=== PATIENT | female | born 1980 | race Caucasian/White ===

== ENCOUNTER → 2019-12-17 14:04 | Outpatient (CLI) | payer OTHER, SELFPAY | PROVIDERS: PCP Family Medicine; Referring Provider Family Medicine; Visit Provider Family Medicine | DX: T22.232A Burn of second degree of left upper arm, initial encounter (principal) | CPT/HCPCS: 16020; 99203; 99213 ==

== ENCOUNTER → 2019-12-24 12:20 | Outpatient (CLI) | payer OTHER, SELFPAY | PROVIDERS: PCP Family Medicine; Referring Provider Family Medicine; Visit Provider Family Medicine | DX: Z48.01 Encounter for change or removal of surgical wound dressing (principal) | CPT/HCPCS: 99212 ==

== ENCOUNTER 2020-01-18 14:36 | Emergency (ER) | payer OTHER, SELFPAY ==
[2020-01-18 14:44] VITALS: BP 143/66; PULSE 90; RESP 16; TEMP 36.6; O2SAT 99; BMI 30.9
[2020-01-18 15:26] LABS: Add Manual Diff / Slide Review NO; Basophils Absolute Auto 0 /uL (0-100); Basophils Percent Auto 0.2 % (0-2); Eosinophils Absolute Auto 100 /uL (0-450); Eosinophils Percent Auto 0.7 % (2-4); Hematocrit 37.6 % (36-46); Lymphocytes Absolute Auto 2200 /uL (1100-4500); Lymphocytes Percent Auto 20.5 % (25-40); Mean Corpuscular HGB Conc 34.5 % (30-36); Mean Corpuscular Hemoglobin 29.6 PG (26-34); Mean Corpuscular Volume 85.6 fL (80-100); Monocytes Absolute Auto 800 /uL (0-900); Monocytes Percent Auto 7.4 % (3-14); Neutrophils Absolute Auto 7600 /uL (1500-7000); Neutrophils Percent Auto 71.2 % (50-75); Platelet Count 340 X10^3/uL (150-400); Red Blood Cell Count 4.39 X10^6/uL (4.0-5.2); Red Cell Distribution Width 13.4 % (11.6-14.8); White Blood Cell Count 10.7 X10^3/uL (4.5-11.0)
--- NOTE | 2020-01-18 15:35 | DI.US.S_ITS ---
PROCEDURE: US PELVIC COMPLETE INDICATIONS: LLQ SEVERE PAIN AND NAUSEA TECHNIQUE: Real-time scanning was performed of the pelvic organs, with image documentation. Additional endovaginal scanning was necessary due to incomplete visualization of the adnexal and endometrial structures by transabdominal scanning. COMPARISON: None. FINDINGS: Transabdominal scanning: Limited scanning through the kidneys shows no hydronephrosis. No pathologic free abdominal or pelvic fluid. Endovaginal scanning: Uterus: Uterus is normal in size at 7.8 x 3.3 by 3.5 cm. The endometrium measures 5.8 mm in combined thickness. Small amount of clot noted in the endometrial cavity. Ovaries: Right ovary measures 2.8 x 1.7 x 1.7 centimeters. Left ovary measures 2.3 x 1.2 x 1.7 centimeters. Small functional follicles noted in the ovaries bilaterally. Color Doppler evaluation demonstrates normal vascular flow in the ovaries bilaterally. IMPRESSION: 1. Small amount of clot within the endometrial cavity. Uterus is otherwise sonographically normal. 2. Ovary sonographically normal with no evidence of ovarian torsion. Please note ultrasound cannot exclude intermittent ovarian torsion. Dictated by: Viki Witt MD, PhD on 01/18/2020 at 16:42 Approved by: Viki Witt MD, PhD on 01/18/2020 at 16:45
[2020-01-18 15:38] LABS: INR 1.1 (0.9-1.3); Prothrombin Time 12.3 SECONDS (10.1-12.7)
[2020-01-18 15:40] LABS: PTT Partial Thromboplastin Tim 34 SECONDS (26.4-36.2)
[2020-01-18 15:44] LABS: Alanine Aminotransferase 33 IU/L (<35); Albumin 4.4 g/dL (3.5-5.0); Albumin Globulin Ratio 1.1 (1.0-2.8); Alkaline Phosphatase 84 U/L (38-126); Aspartate Aminotransferase 27 IU/L (14-36); BUN Creatinine Ratio 12.9 (6-22); Bilirubin Total 0.4 mg/dL (0.2-1.3); Blood Urea Nitrogen 13 mg/dL (7-17); Calcium 9.3 mg/dL (8.4-10.2); Carbon Dioxide 27 mmol/L (22-32); Chloride 104 mmol/L (98-107); Estimated Glomerular Filt Rate > 60.0 mL/min (>60); Glucose 100 mg/dL (70-100); HEMOLYSIS < 15 (0-50); Lipase 67 U/L (23-300); Potassium 4.4 mmol/L (3.4-5.1); Sodium 140 mmol/L (137-145); Total Protein 8.4 g/dL (6.3-8.2)
[2020-01-18] MEDS: ONDANSETRON 4 MG/2 ML INJ IV (15:45)
[2020-01-18] MEDS: KETOROLAC 60 MG/2 ML VIAL 15 MG IV (15:45)
[2020-01-18] MEDS: SODIUM CHLORIDE 0.9% 1,000 ML 1000 ML IV (15:45)
--- NOTE | 2020-01-18 15:51 | ED.ABDPAIN ---
HPI - Abdominal Pain <SHITAL Bates - Last Filed: 01/18/20 22:24> General Chief Complaint: Abdominal Pain Stated Complaint: lower left abomdinal pain Time Seen by Provider: 01/18/20 15:08 Source: patient Mode of arrival: Ambulatory Limitations: no limitations History of Present Illness HPI narrative: This is a 39 year female, nonsmoker, who presents to ED with significant other with chief complain of left lower quadrant pain. Patient reports intermittent similar pain since July 2019 and this time recurring since this morning. Patient reports pain is sharp and rates as 10/10, reports pain worsens with movements, with nausea but no vomiting. Patient denies fever, chills, urinary symptoms such as urgency, dysuria, or hematuria. Patient denies history of ovarian cysts, unusual vaginal bleeding or discharge. Patient reports she had removed IUD Mirena about 3 weeks ago thought this was the cause of the left low quadrant pain. She is currently having vaginal spotting. Last bowel movement was this morning which was normal for patient. [facility] medical record was reviewed on 12/28/[address] test at that time reveals left-sided 4 mm uretal stone which has not been changed in location since July 2019. Multiple nonobstructing small left renal stones. And probable malpositioned of the IUD extending into the myometrium Related Data Home Medications Medication Instructions Recorded Confirmed bupropion HCl 300 mg PO DAILY 01/23/20 01/23/20 Previous Rx's Medication Instructions Recorded ondansetron 4 mg PO BID-TID PRN #7 tab 01/18/20 oxycodone 5 mg PO Q4H PRN #14 tab 01/23/20 Allergies Allergy/AdvReac Type Severity Reaction Status Date / Time hydromorphone [From Dilaudid] AdvReac Vomiting Verified 01/23/20 07:11 Review of Systems <SHITAL Bates - Last Filed: 01/18/20 22:24> Review of Systems Narrative: General: Denies fever, chills, fatigue, malaise, sweats. HEENT: Denies sinus pain, ear pain, sore throat, difficulty swallowing, dizziness. Respiratory: Denies dyspnea, cough, wheezing, hemoptysis, sputum. Cardiovascular: Denies chest pain, palpitations, orthopnea, edema. Gastrointestinal: See HPI : Denies dysuria, frequency, incontinence, hematuria, urinary retention. Musculoskeletal: Denies weakness, joint pain or bony pain. Skin: Denies rash, skin lesions, or other. Neurologic: Denies weakness, headache, numbness, change in speech, confusion, seizures, incoordination. Psychiatric: No concerning psychosocial issues. 12-point review of systems is negative except for those stated above. Patient History <SHITAL Bates - Last Filed: 01/18/20 22:24> Medical History (Updated 01/23/20 @ 14:18 by Rosalio Valverde MD) History of nephrolithiasis (Acute) Left renal stone (Acute) Left renal stone (Acute) Left ureteral calculus (Acute) Left ureteral stone (Acute) Renal colic on left side (Acute) Surgical History H/O Spinal surgery (Acute) History of appendectomy (Acute) History of (Acute) Social History household members: family Smoking Status: Never smoker Smoking Status: Never smoker alcohol intake frequency: a few times a month Substance Use Type: does not use Exam <SHITAL Bates - Last Filed: 01/18/20 22:24> Narrative Exam Narrative: GEN: Alert, oriented x 3, well nourished, and in acute moderate distress from pain. Head: Normal cephalic, atraumatic. No scalp or temporal tenderness, palpable mass or rash. EYES: Pupils are equal, round, and reactive to light and accommodation. Extraocular muscles are intact bilaterally. There is no subconjunctival hemorrhage, exudate and sclera non-icteric. ENT: Hearing grossly intact. Nose without bleeding, purulent discharge or deviation. Mucous membrane moist, no mucosal lesion. Throat without erythema, tonsillar hypertrophy or exudate. Uvula in midline, airway patent. Neck: Trachea in midline. No JVD, non-tender without lymphadenopathy. No masses or thyroid megaly. Supple, non-tender and no meningeal signs. CARDIAC: Normal regular rate and rhythm without murmurs, gallops, or rubs. No chest wall tenderness. No peripheral edema, cyanosis or pallor. Capillary refill is less than 2 seconds. RESPIRATORY: Lungs are clear to auscultate bilaterally. No cough, wheezes, rales, or rhonchi. No stridor, respiratory distress, increase work of breathing, or accessary muscle used. ABD: Abdomen soft, non-distended, left lower quadrant pain to palpate. No guarding or rebound tenderness to palpate. Bowel sounds are normal in all 4 quadrants. There is no palpable masses or organomegaly. EXT: Full painless ROM of all extremities with no loss of sensation, strength, effusion or edema. SKIN: Warm, dry, normal color for patient. No erythema, lesions or rash over visible areas. BACK: Nontender without deformity or crepitance. No flank tenderness. NEUROLOGICAL: Alert and oriented to place, time and person. Sensation and motor function intact bilaterally. No facial droops, dysphasia. PSYCHIATRIC: Good judgement and reason, without hallucinations, abnormal affect or abnormal behaviors during the examination. Patient is not suicidal. Initial Vital Signs Initial Vital Signs: Vital Signs Temperature 97.9 F 01/18/20 14:44 Pulse Rate 90 01/18/20 14:44 Respiratory Rate 16 01/18/20 14:44 Blood Pressure 143/66 H 01/18/20 14:44 Pulse Oximetry 99 01/18/20 14:44 General: No CVA tenderness External Female Exam: normal external appearance Speculum Exam - Vagina: normal appearance of the vagina, no lesions, no swelling, nontender and other (Watery light pink vaginal discharge appreciated) Speculum Exam - Cervix: normal appearance of the cervix, no lesions, no masses and nontender Bimanual Exam- Vagina & Uterus: normal bimanual exam, uterine size normal, normal palpation and No tender Bimanual Exam- Adnexa, other: no masses and no tenderness <Goldie Clark DO - Last Filed: 01/24/20 07:33> Initial Vital Signs Initial Vital Signs: Vital Signs Temperature 97.9 F 01/18/20 14:44 Pulse Rate 90 01/18/20 14:44 Respiratory Rate 16 01/18/20 14:44 Blood Pressure 143/66 H 01/18/20 14:44 Pulse Oximetry 99 01/18/20 14:44 Scores <SHITAL Bates - Last Filed: 09/21/20 22:24> GCS [place] coma scale eye opening: Spontaneous [place] coma scale verbal response: Orientated [place] coma scale motor response: Obey commands [place] coma scale total score: 15 Course <SHITAL Bates - Last Filed: 01/18/20 22:24> Orders Ordered: Discontinued Medications Bacitracin (Bacitracin) 1 applic TOP NOW ONE Stop: 01/18/20 16:00 Last Admin: 01/18/20 17:16 Dose: Not Given Documented by: KSCHERE Sodium Chloride (Normal Saline 0.9%) 1,000 mls @ 1,000 mls/hr IV BOLUS ONE Stop: 01/18/20 16:34 Last Infusion: 01/18/20 18:03 Dose: 0 mls/hr Documented by: Admin: 01/18/20 15:45 Dose: 1,000 mls/hr Documented by: CHARLIE Ketorolac Tromethamine (Toradol) 15 mg IV NOW ONE Stop: 01/18/20 15:36 Last Admin: 01/18/20 15:45 Dose: 15 mg Documented by: CHARLIE Ondansetron HCl (Zofran) 4 mg IV NOW ONE Stop: 01/18/20 15:36 Last Admin: 01/18/20 15:45 Dose: 4 mg Documented by: CHARLIE Vital Signs Vital signs: Vital Signs - 8 hr 01/18/20 14:44 01/18/20 18:26 Temperature 97.9 F Pulse Rate 90 86 Respiratory Rate 16 18 Blood Pressure 143/66 H 138/71 Pulse Oximetry 99 99 <Goldie Clark DO - Last Filed: 01/24/20 07:33> Orders Ordered: Discontinued Medications Bacitracin (Bacitracin) 1 applic TOP NOW ONE Stop: 01/18/20 16:00 Last Admin: 01/18/20 17:16 Dose: Not Given Documented by: KSCHERE Sodium Chloride (Normal Saline 0.9%) 1,000 mls @ 1,000 mls/hr IV BOLUS ONE Stop: 01/18/20 16:34 Last Infusion: 01/18/20 18:03 Dose: 0 mls/hr Documented by: Admin: 01/18/20 15:45 Dose: 1,000 mls/hr Documented by: CHARLIE Ketorolac Tromethamine (Toradol) 15 mg IV NOW ONE Stop: 01/18/20 15:36 Last Admin: 01/18/20 15:45 Dose: 15 mg Documented by: CHARLIE Ondansetron HCl (Zofran) 4 mg IV NOW ONE Stop: 01/18/20 15:36 Last Admin: 01/18/20 15:45 Dose: 4 mg Documented by: CHARLIE Vital Signs Vital signs: Vital Signs - 8 hr 01/18/20 14:44 01/18/20 18:26 Temperature 97.9 F Pulse Rate 90 86 Respiratory Rate 16 18 Blood Pressure 143/66 H 138/71 Pulse Oximetry 99 99 MDM - Abdominal Pain <Jacobo SHITAL Izquierdo - Last Filed: 01/18/20 22:24> Differential Diagnosis Differential diagnosis: Likely diverticulitis, endometriosis and other (Ovarian cyst, hemorrhagic ovarian cyst, ovarian torsion, PID, oval tubular abscess, urine perforation, constipation, kidney stone, bladder infection) Medical Records Attestation: I reviewed the patient's medical records. Lab Data Attestation: I reviewed the patient's lab results. Result diagrams: 01/18/20 15:19 01/18/20 15:19 Labs: Lab Results 01/18/20 01/18/20 01/18/20 Range/Units 15:19 15:19 15:19 WBC 10.7 (4.5-11.0) X10^3/uL RBC 4.39 (4.0-5.2) X10^6/uL Hgb 13.0 (12.0-16.0) g/dL Hct 37.6 (36-46) % MCV 85.6 (80-100) fL MCH 29.6 (26-34) PG MCHC 34.5 (30-36) % RDW 13.4 (11.6-14.8) % Plt Count 340 (150-400) X10^3/uL Neut % (Auto) 71.2 (50-75) % Lymph % (Auto) 20.5 L (25-40) % [place] % (Auto) 7.4 (3-14) % Eos % (Auto) 0.7 L (2-4) % Baso % (Auto) 0.2 (0-2) % Neut # (Auto) 7600 H (9837-8863) /uL Lymph # (Auto) 2200 (7892-0084) /uL [place] # (Auto) 800 (0-900) /uL Eos # (Auto) 100 (0-450) /uL Baso # (Auto) 0 (0-100) /uL PT 12.3 (10.1-12.7) SECONDS INR 1.1 (0.9-1.3) APTT 34 (26.4-36.2) SECONDS Sodium 140 (137-145) mmol/L Potassium 4.4 (3.4-5.1) mmol/L Chloride 104 (98-107) mmol/L Carbon Dioxide 27 (22-32) mmol/L BUN 13 (7-17) mg/dL Creatinine 1.01 (0.52-1.04) mg/dL Estimated GFR > 60.0 (>60) mL/min BUN/Creatinine Ratio 12.9 (6-22) Glucose 100 (70-100) mg/dL Lactate (0.7-2.1) mmol/L Calcium 9.3 (8.4-10.2) mg/dL Total Bilirubin 0.4 (0.2-1.3) mg/dL AST 27 (14-36) IU/L ALT 33 (<35) IU/L Alkaline Phosphatase 84 (38-126) U/L Total Protein 8.4 H (6.3-8.2) g/dL Albumin 4.4 (3.5-5.0) g/dL Globulin 4.0 (1.7-4.1) g/dL Albumin/Globulin Ratio 1.1 (1.0-2.8) Lipase 67 (23-300) U/L Urine RBC (0-5/HPF) Urine WBC (0-5/HPF) Ur Squamous Epith Cells (0-5/HPF) Urine Bacteria (None) Ur Culture Indicated? C.trachomatis Ampl DNA (Negative) M. genitalium (PCR) (Negative) N.gonorrhoeae Ampl DNA (Negative) 01/18/20 01/18/20 01/18/20 Range/Units 15:19 16:40 18:02 WBC (4.5-11.0) X10^3/uL RBC (4.0-5.2) X10^6/uL Hgb (12.0-16.0) g/dL Hct (36-46) % MCV (80-100) fL MCH (26-34) PG MCHC (30-36) % RDW (11.6-14.8) % Plt Count (150-400) X10^3/uL Neut % (Auto) (50-75) % Lymph % (Auto) (25-40) % [place] % (Auto) (3-14) % Eos % (Auto) (2-4) % Baso % (Auto) (0-2) % Neut # (Auto) (4622-4043) /uL Lymph # (Auto) (7961-1932) /uL [place] # (Auto) (0-900) /uL Eos # (Auto) (0-450) /uL Baso # (Auto) (0-100) /uL PT (10.1-12.7) SECONDS INR (0.9-1.3) APTT (26.4-36.2) SECONDS Sodium (137-145) mmol/L Potassium (3.4-5.1) mmol/L Chloride (98-107) mmol/L Carbon Dioxide (22-32) mmol/L BUN (7-17) mg/dL Creatinine (0.52-1.04) mg/dL Estimated GFR (>60) mL/min BUN/Creatinine Ratio (6-22) Glucose (70-100) mg/dL Lactate 1.0 (0.7-2.1) mmol/L Calcium (8.4-10.2) mg/dL Total Bilirubin (0.2-1.3) mg/dL AST (14-36) IU/L ALT (<35) IU/L Alkaline Phosphatase (38-126) U/L Total Protein (6.3-8.2) g/dL Albumin (3.5-5.0) g/dL Globulin (1.7-4.1) g/dL Albumin/Globulin Ratio (1.0-2.8) Lipase (23-300) U/L Urine RBC 5-10/hpf H (0-5/HPF) Urine WBC 10-30/hpf H (0-5/HPF) Ur Squamous Epith Cells 0-1 /hpf (0-5/HPF) Urine Bacteria Occasional (0-1) (None) Ur Culture Indicated? Specimen cultured C.trachomatis Ampl DNA Negative (Negative) M. 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 Additional endovaginal scanning was necessary due to incomplete visualization of the adnexal and endometrial structures by transabdominal scanning. COMPARISON: None. FINDINGS: Transabdominal scanning: Limited scanning through the kidneys shows no hydronephrosis. No pathologic free abdominal or pelvic fluid. Endovaginal scanning: Uterus: Uterus is normal in size at 7.8 x 3.3 by 3.5 cm. The endometrium measures 5.8 mm in combined thickness. Small amount of clot noted in the endometrial cavity. Ovaries: Right ovary measures 2.8 x 1.7 x 1.7 centimeters. Left ovary measures 2.3 x 1.2 x 1.7 centimeters. Small functional follicles noted in the ovaries bilaterally. Color Doppler evaluation demonstrates normal vascular flow in the ovaries bilaterally. IMPRESSION: 1. Small amount of clot within the endometrial cavity. Uterus is otherwise sonographically normal. 2. Ovary sonographically normal with no evidence of ovarian torsion. Please note ultrasound cannot exclude intermittent ovarian torsion. Dictated by: Viki Witt MD, PhD on 01/18/2020 at 16:42 Approved by: Viki Witt MD, PhD on 01/18/2020 at 16:45 [facility] Narrative Medical decision making narrative: This is a 39-year-old female who presents to ED with severe left lower quadrant pain that started this morning. Patient has been having similar symptoms since July 2019. She had removed IUD Mirena 3 weeks ago after she was seen at [facility] and was informed malposition of IUD. Patient had associated symptoms is nausea but denies constitutional symptoms, UTI symptoms, unusual vaginal discharge. She is currently having menstruation. No leukocytosis. Stable H&H. Normal coag test. Test with normal kidney function test. Normal lactate and procalcitonin indicating sepsis or severe infection. Urine test shows occult blood, negative nitrites, or leukoesterase. Urine test was negative. Microscopic urine test shows 10-30/ hpf of WBC and 5-10/hpf of RBC with occasional bacteria. Urine cultures pending. Pelvic US shows no hydronephrosis, no perforated uterus, normal size bilateral ovaries with small functional follicles. There is normal vascular floor in the ovaries bilaterally. Pelvic physical exam was unremarkable. GC/chlamydia culture, wet prep, general culture was obtained and pending for results. After patient was discharged to home, prep result came back with positive for moderate amount of cleucells. Patient's pain was well managed with IV Zofran, Toradol and IVF infusion. She appears to be drowsy after these treatments without any narcotic medication use. Patient was diagnosed with UTI and bacterial vagnosis. When patient's record from [facility] reviewed, patient has multiple nonobstructing left kidney stones and 4 mm uretal stone with mild hydronephrosis on 12/29/2019 which has not changed since July 2019 on location. The patient's pain may due to kidney stones there was seen in the previous CT test. Patient was advised to follow-up with urologist per [facility] but does not appears to be patient has done this yet. Patient was discharged to home with small dose of [place], Zofran and advised to take [id number] Tylenol and or Motrin for baseline pain management. She was called with wet prep result and Flagyl vaginal gel was called into [facility] in [place]. Patient was advised to follow-up with primary care physician and return precautions were discussed which patient verbalized the understanding and in agreement with the treatment plan. <Goldie Clark, - Last Filed: 01/24/20 07:33> Lab Data Labs: Lab Results 01/18/20 01/18/20 01/18/20 Range/Units 15:19 15:19 15:19 WBC 10.7 (4.5-11.0) X10^3/uL RBC 4.39 (4.0-5.2) X10^6/uL Hgb 13.0 (12.0-16.0) g/dL Hct 37.6 (36-46) % MCV 85.6 (80-100) fL MCH 29.6 (26-34) PG MCHC 34.5 (30-36) % RDW 13.4 (11.6-14.8) % Plt Count 340 (150-400) X10^3/uL Neut % (Auto) 71.2 (50-75) % Lymph % (Auto) 20.5 L (25-40) % [place] % (Auto) 7.4 (3-14) % Eos % (Auto) 0.7 L (2-4) % Baso % (Auto) 0.2 (0-2) % Neut # (Auto) 7600 H (6175-9711) /uL Lymph # (Auto) 2200 (2799-1317) /uL [place] # (Auto) 800 (0-900) /uL Eos # (Auto) 100 (0-450) /uL Baso # (Auto) 0 (0-100) /uL PT 12.3 (10.1-12.7) SECONDS INR 1.1 (0.9-1.3) APTT 34 (26.4-36.2) SECONDS Sodium 140 (137-145) mmol/L Potassium 4.4 (3.4-5.1) mmol/L Chloride 104 (98-107) mmol/L Carbon Dioxide 27 (22-32) mmol/L BUN 13 (7-17) mg/dL Creatinine 1.01 (0.52-1.04) mg/dL Estimated GFR > 60.0 (>60) mL/min BUN/Creatinine Ratio 12.9 (6-22) Glucose 100 (70-100) mg/dL Lactate (0.7-2.1) mmol/L Calcium 9.3 (8.4-10.2) mg/dL Total Bilirubin 0.4 (0.2-1.3) mg/dL AST 27 (14-36) IU/L ALT 33 (<35) IU/L Alkaline Phosphatase 84 (38-126) U/L Total Protein 8.4 H (6.3-8.2) g/dL Albumin 4.4 (3.5-5.0) g/dL Globulin 4.0 (1.7-4.1) g/dL Albumin/Globulin Ratio 1.1 (1.0-2.8) Lipase 67 (23-300) U/L Urine RBC (0-5/HPF) Urine WBC (0-5/HPF) Ur Squamous Epith Cells (0-5/HPF) Urine Bacteria (None) Ur Culture Indicated? C.trachomatis Ampl DNA (Negative) M. genitalium (PCR) (Negative) N.gonorrhoeae Ampl DNA (Negative) 01/18/20 01/18/20 01/18/20 Range/Units 15:19 16:40 18:02 WBC (4.5-11.0) X10^3/uL RBC (4.0-5.2) X10^6/uL Hgb (12.0-16.0) g/dL Hct (36-46) % MCV (80-100) fL MCH (26-34) PG MCHC (30-36) % RDW (11.6-14.8) % Plt Count (150-400) X10^3/uL Neut % (Auto) (50-75) % Lymph % (Auto) (25-40) % [place] % (Auto) (3-14) % Eos % (Auto) (2-4) % Baso % (Auto) (0-2) % Neut # (Auto) (4407-1920) /uL Lymph # (Auto) (1735-7207) /uL [place] # (Auto) (0-900) /uL Eos # (Auto) (0-450) /uL Baso # (Auto) (0-100) /uL PT (10.1-12.7) SECONDS INR (0.9-1.3) APTT (26.4-36.2) SECONDS Sodium (137-145) mmol/L Potassium (3.4-5.1) mmol/L Chloride (98-107) mmol/L Carbon Dioxide (22-32) mmol/L BUN (7-17) mg/dL Creatinine (0.52-1.04) mg/dL Estimated GFR (>60) mL/min BUN/Creatinine Ratio (6-22) Glucose (70-100) mg/dL Lactate 1.0 (0.7-2.1) mmol/L Calcium (8.4-10.2) mg/dL Total Bilirubin (0.2-1.3) mg/dL AST (14-36) IU/L ALT (<35) IU/L Alkaline Phosphatase (38-126) U/L Total Protein (6.3-8.2) g/dL Albumin (3.5-5.0) g/dL Globulin (1.7-4.1) g/dL Albumin/Globulin Ratio (1.0-2.8) Lipase (23-300) U/L Urine RBC 5-10/hpf H (0-5/HPF) Urine WBC 10-30/hpf H (0-5/HPF) Ur Squamous Epith Cells 0-1 /hpf (0-5/HPF) Urine Bacteria Occasional (0-1) (None) Ur Culture Indicated? Specimen cultured C.trachomatis Ampl DNA Negative (Negative) M. genitalium (PCR) Negative (Negative) N.gonorrhoeae Ampl DNA Negative (Negative) Point of care testing: Point of Care Testing Test Results Negative Urine Dip Bedside Urine Glucose Negative Bedside Urine Bilirubin - Negative Bedside Urine Ketone - Negative Urine Specific [place] 1.020 Bedside Urine Occult Blood + Bedside Urine pH 6.0 Bedside Urine Protein - Negative Bedside Urine Urobilinogen - Negative Bedside Urine Nitrite - Negative Bedside Urine Leukocytes - Negative Esterase Discharge Plan Departure Patient Disposition: Home Clinical Impression: Left lower quadrant abdominal pain UTI (urinary tract infection) Qualifiers: Urinary tract infection type: site unspecified Hematuria presence: without hematuria Qualified Code(s): N39.0 - Urinary tract infection, site not specified Discharge Date/Time: 01/18/20 18:27 Instructions: DI for Urinary Tract Infection (UTI), DI for Abdominal Pain-Adult Activity Restrictions/Additional Instructions: You have been diagnosed with [left lower quadrant pain. Blood test and ultrasound tests are assuring. Urine test shows early UTI. Urine cultures pending. You will receive a phone call from us if require different antibiotic medication. You will receive a phone call from a if you require other medications with vaginal culture results.]. What to do: *Take your medications as directed. Keflex is antibiotic medication for UTI. Please take it twice a day for next 5 days. Zofran as needed for nausea. [place] is strong narcotic pain medication which can cause sedation and constipation so please take precautions. Please do not drive, drink alcohol or operate heavy equipments. Otherwise, you can take [id number] Tylenol and or Motrin as needed for discomfort. The medications have been transmitted to [facility] in [place]. *Follow up with your primary care provider in 2-3 days, call for an appointment. Let them know you were seen in the ED and that we asked you to be seen in follow up. *Return to ED if you have any new, worsening, or concerning symptoms, such as [worsening pain, fever, chest pain, breathing difficulty, unusual vaginal discharge, unable to tolerate fluids or any acute concerns]. Prescriptions: New ondansetron 4 mg tablet,disintegrating 4 mg PO BID-TID PRN (Reason: nausea and vomiting) Qty: 7 RF: 0 No Action bupropion HCl 300 mg tablet extended release 24 hr 300 mg PO DAILY RF: 0 oxycodone 5 mg tablet 5 mg PO Q4H PRN (Reason: pain) Qty: 14 RF: 0 Referrals: [facility] [Outside] Stand Alone Forms: Work Release Note <Goldie Clark, DO - Last Filed: 01/24/20 07:33> [facility] Attending Darenature Attestation: I was immediately available in the department for consultation. Documentation has been reviewed. I agree with assessment and plan.
[2020-01-18 17:13] LABS: Bacteria Urine Occasional (0-1); Culture Indicated Urine Specimen Cultured; RBC Urine 5-10/HPF (0-5/HPF); Squamous Epithelial Cell Urine 0-1 /HPF (0-5/HPF); WBC Urine 10-30/HPF (0-5/HPF)
[2020-01-18 18:26] VITALS: BP 138/71; PULSE 86; RESP 18; O2SAT 99
[2020-01-22 09:37] LABS: Chlamydia trachomatis Negative (Negative); Mycoplasma genitalium Negative (Negative); Neisseria gonorrhoeae Negative (Negative)
== END 2020-01-18 18:27 | disposition home or self-care (01) ==
PROVIDERS: Emergency Provider Nurse Practitioner Family
DX: R10.32 Left lower quadrant pain (principal); N39.0 Urinary tract infection, site not specified; R11.0 Nausea
CPT/HCPCS: 36415; 76856; 80053; 81003; 81015; 81025; 83605; 83690; 85025; 85610; 85730; 87070; 87077; 87086; 87147; 87205; 87210; 87491; 87591; 96361; 96374; 96375; 99284; J1885; J2405

== ENCOUNTER 2020-01-23 06:43 | Observation (INO) | payer OTHER, SELFPAY ==
[2020-01-23] VITALS (19 sets, daily range): BP systolic 111–138; BP diastolic 52–81; PULSE 85–119; RESP 11–34; TEMP 36.2–37.5; O2SAT 94–100; BMI 31.5; BMI 31.1
--- NOTE | 2020-01-23 | DI.RAD.S_ITS ---
PROCEDURE: XR KUB INDICATIONS: Obstructing left ureteral calculus TECHNIQUE: One view of the abdomen acquired. COMPARISON: [facility], CT, CT ABDOMEN PELVIS W CON, 01/23/2020, 8:16. FINDINGS: Surgical changes and devices: None. Bowel: Bowel gas pattern is normal. Soft tissues: There is poor plain film visualization of the patient's known left ureteral stone. There is retained contrast seen within the left kidney parenchyma, which is consistent with poor excretion and reduced kidney function. Normal appearing excreting contrast is seen within the right renal collecting system and within the urinary bladder. Bones: No suspicious bony lesions. IMPRESSION: There is poor visualization of the known left ureteral stone. Retained contrast within the left kidney parenchyma, which is consistent with reduced kidney function. Dictated by: Yadiel Bailey M.D. on 01/23/2020 at 13:58 Approved by: Yadiel Bailey M.D. on 01/23/2020 at 14:04
--- NOTE | 2020-01-23 | DI.RAD.S_ITS ---
PROCEDURE: XR ABDOMEN 1V INDICATIONS: STENT TECHNIQUE: One view of the abdomen acquired. COMPARISON: [facility], CT, CT ABDOMEN PELVIS W CON, 01/23/2020, 8:16. [facility], CR, XR KUB, 01/23/2020, 14:02. FINDINGS: Single intraoperative fluoroscopic view of the left abdomen demonstrates proximal coil of a left ureteral stent. IMPRESSION: 1. Intraoperative fluoroscopic view of the left abdomen demonstrates proximal coil of a left ureteral stent. Dictated by: Fredo Reyez M.D. on 01/23/2020 at 21:01 Approved by: Fredo Reyez M.D. on 01/23/2020 at 21:03
--- NOTE | 2020-01-23 07:06 | ED_ITS ---
HPI - Female Genitourinary General Chief complaint: Urogenital-Female Stated complaint: kidney stone won't pass Time Seen by Provider: 01/23/20 06:55 Source: patient and family Mode of arrival: Ambulatory Limitations: no limitations History of Present Illness HPI Narrative: 39-year-old female nonsmoker with history of kidney stone and recurrent episodes of pelvic pain presents with her friend in the chief complain t of ongoing left lower quadrant and left flank pain since at least Saturday. She had been seen and evaluated here earlier in the week and had an ultrasound which was unremarkable and was treated for her pain. In days previous to that she was seen at would be and told that she had an issue with her IUD which had since been removed. The pain persists despite removal. She has had nausea and vomiti ng. She denies fever or chills. She denies runny nose, sore throat or cough. She has had no chest pain or shortness of breath. She denies any dysuria, frequency or urgency. Her pain is worse with motion and improves with rest. MD Complaint: pelvic pain Onset (ago): day(s) Location: LLQ Female Urogenital Radiation: L Flank Severity: severe Quality: Aching, Cramping and Sharp Duration: constant Exacerbating factors: movement Patient : No Related Data Home Medications Medication Instructions Recorded Confirmed bupropion HCl 300 mg PO DAILY 01/23/20 01/23/20 Previous Rx's Medication Instructions Recorded hydrocodone-acetaminophen [[place]] 1 tab PO Q8H PRN #7 tab 01/18/20 ondansetron 4 mg PO BID-TID PRN #7 tab 01/18/20 Allergies Allergy/AdvReac Type Severity Reaction Status Date / Time hydromorphone [From Dilaudid] AdvReac Vomiting Verified 01/23/20 07:11 Review of Systems Constitutional Constitutional: Denies chills, Denies fatigue, Denies fever(s), Denies frequent falls, Denies lethargy and Denies weakness Eyes Eyes: Denies change in vision, Denies eye discharge, Denies irritation and Denies loss of vision ENT Ears, Nose, Mouth, and Throat: Denies change in voice, Denies dizziness, Denies neck pain, Denies sore throat and Denies throat swelling Cardiovascular Cardiovascular: Denies chest pain, Denies irregular heart rhythm, Denies lightheadedness, Denies palpitations, Denies dyspnea, Denies dyspnea on exertion and Denies orthopnea Respiratory Respiratory: Denies cough, Denies dyspnea, Denies dyspnea on exertion and Denies wheezing Gastrointestinal Gastrointestinal: Reports abdominal pain, Denies change in bowel habits, Denies diarrhea, Reports nausea and Reports vomiting Musculoskeletal Musculoskeletal: Denies neck pain and Denies numbness Integumentary/Breasts Skin/Breast: Denies pruritus, Denies erythema, Denies rash and Denies wounds Neurologic Neurologic: Denies behavioral changes, Denies confusion, Denies dizziness, Denies frequent falls, Denies loss of vision, Denies numbness and Denies weakness Psychiatric Psychiatric: Denies anxiety, Denies behavioral changes, Denies confusion, Denies depression, Denies homicidal ideation and Denies suicidal ideation Endocrine Endocrine: Denies fatigue, Denies flushing and Denies palpitations Hematologic/Lymphatic Hematologic/Lymphatic: Denies easy bruising Allergic/Immunologic Allergic/Immunologic: Denies urticaria, Denies throat swelling and Denies wheezing Patient History Medical History Left renal stone (Acute) Left ureteral stone (Acute) Surgical History H/O Spinal surgery (Acute) History of appendectomy (Acute) History of (Acute) alcohol intake frequency: a few times a month Substance Use Type: does not use Exam Narrative Exam Narrative: GENERAL: [39] year old patient appears stated age. Well- nourished, well-developed patient, in obvious distress, tearful, holding an emesis bag, rubbing her left side abdomen HEAD: Atraumatic. Normocephalic. EYES: Pupils equal round and reactive. Extraocular motions intact. No scleral icterus. No injection or drainage. ENT: Nose without bleeding, purulent drainage. Throat without erythema, tonsillar hypertrophy or exudate. Airway patent. NECK: Trachea midline. Non tender CARDIOVASCULAR: Regular rate and rhythm without murmurs, gallops, or rubs. RESPIRATORY: Clear to auscultation. Breath sounds equal bilaterally. No wheezes, rales, or rhonchi. GASTROINTESTINAL: Abdomen soft, left lower quadrant and flank mildly tender to palpate, nondistended. Bowel sounds in all 4 quadrants EXTREMITIES: No edema or joint tenderness. BACK: Nontender without deformity or crepitance. No flank tenderness. NEURO: AOx3. SKIN: No rash or erythema of visible areas Initial Vital Signs Initial Vital Signs: Vital Signs Pulse Rate 117 H 01/23/20 06:57 Blood Pressure 138/81 01/23/20 06:57 Pulse Oximetry 99 01/23/20 06:57 Course Orders Ordered: ED Orders 01/23/20 07:20 Basic Metabolic Panel Stat Complete Blood Count AUTO DIFF Stat 01/23/20 08:01 CT abdomen pelvis w con Stat 01/23/20 08:21 Urinalysis and Microscopic Stat 01/23/20 09:12 COVID19 -ED/INPAT/OR/L&D Stat 01/23/20 09:27 Urine Culture Stat Stored In Pharmacy 0 each PO PRN PRN PRN Reason: . Sodium Chloride (Normal Saline 0.9% Flush) 10 ml IV PRN PRN PRN Reason: Flush Last Admin: 01/23/20 11:36 Dose: 10 ml Documented by: NEVAEH Sodium Chloride (Normal Saline 0.9% Flush) 10 ml IV BID JOANNE Discontinued Medications Sodium Chloride (Normal Saline 0.9%) 1,000 mls @ 1,000 mls/hr IV BOLUS ONE Stop: 01/23/20 09:00 Last Infusion: 01/23/20 09:50 Dose: 0 mls/hr Documented by: Admin: 01/23/20 08:39 Dose: 1,000 mls/hr Documented by: RON Ceftriaxone Sodium/Dextrose (Rocephin) 1 gm in 50 mls @ 100 mls/hr IV NOW ONE Stop: 01/23/20 09:53 Last Admin: 01/23/20 11:31 Dose: 100 mls/hr Documented by: NEVAEH Ketorolac Tromethamine (Toradol) 15 mg IV NOW ONE Stop: 01/23/20 08:02 Last Admin: 01/23/20 08:38 Dose: 15 mg Documented by: RON Ondansetron HCl (Zofran) 4 mg IV NOW ONE Stop: 01/23/20 08:38 Last Admin: 01/23/20 08:45 Dose: 4 mg Documented by: RON Consultations Consultation #1: call to Dr. Valverde given repeat visit, ongoing pain, large proximal stone and elevated WBC. He requests ABX, COVID, NPO and will admit for likely stent Vital Signs Vital signs: Vital Signs - 8 hr 01/23/20 06:57 01/23/20 07:00 01/23/20 07:09 Temperature 98.4 F Pulse Rate 117 H 119 H 116 H Respiratory Rate 22 Blood Pressure 138/81 138/81 Pulse Oximetry 99 100 98 01/23/20 07:30 01/23/20 08:00 01/23/20 08:35 Temperature Pulse Rate 102 H 113 H 100 H Respiratory Rate 34 H 26 H Blood Pressure Pulse Oximetry 100 100 01/23/20 09:00 01/23/20 09:30 01/23/20 10:00 Temperature Pulse Rate 101 H 105 H 94 H Respiratory Rate 23 24 15 Blood Pressure Pulse Oximetry 100 94 97 01/23/20 10:30 Temperature 97.7 F Pulse Rate 104 H Respiratory Rate 16 Blood Pressure 116/70 Pulse Oximetry 98 MDM - Female Genitourinary Lab Data Result diagrams: 01/23/20 07:20 01/23/20 07:20 Labs: Lab Results 01/23/20 01/23/20 01/23/20 Range/Units 07:20 07:20 08:21 WBC 13.9 H (4.5-11.0) X10^3/uL RBC 3.99 L (4.0-5.2) X10^6/uL Hgb 11.6 L (12.0-16.0) g/dL Hct 33.9 L (36-46) % MCV 84.9 (80-100) fL MCH 29.2 (26-34) PG MCHC 34.4 (30-36) % RDW 13.1 (11.6-14.8) % Plt Count 325 (150-400) X10^3/uL Neut % (Auto) 82.0 H (50-75) % Lymph % (Auto) 8.9 L (25-40) % [place] % (Auto) 8.2 (3-14) % Eos % (Auto) 0.6 L (2-4) % Baso % (Auto) 0.3 (0-2) % Neut # (Auto) 64705 H (2512-7826) /uL Lymph # (Auto) 1200 (4621-5122) /uL [place] # (Auto) 1100 H (0-900) /uL Eos # (Auto) 100 (0-450) /uL Baso # (Auto) 0 (0-100) /uL Sodium 135 L (137-145) mmol/L Potassium 3.7 (3.4-5.1) mmol/L Chloride 99 (98-107) mmol/L Carbon Dioxide 21 L (22-32) mmol/L BUN 15 (7-17) mg/dL Creatinine 1.14 H (0.52-1.04) mg/dL Estimated GFR 53.6 L (>60) mL/min BUN/Creatinine Ratio 13.2 (6-22) Glucose 144 H (70-100) mg/dL Calcium 9.6 (8.4-10.2) mg/dL Urine Color Yellow Urine Appearance Clear Urine pH 6.0 (4.5-8.0) Ur Specific [place] 1.010 (1.000-1.035) Urine Protein Negative (Negative) Urine Glucose (UA) Negative (Negative) g/dL Urine Ketones Negative (NEGATIVE) Urine Occult Blood 3+ H (Negative) Urine Nitrate Negative (Negative) Urine Bilirubin Negative (NEGATIVE) Urine Urobilinogen 1.0 (0.2) E.U./dL Ur Leukocyte Esterase Negative (NEGATIVE) Urine RBC 1-5/hpf (0-5/HPF) Urine WBC 0-1/hpf (0-5/HPF) Ur Squamous Epith Cells 5-10 /hpf H (0-5/HPF) Amorphous Sediment 1+ Urine Bacteria Moderate (10-30) H (None) Ur Culture Indicated? Cult not indicated Micro UA Comment Not Reportable COVID-19 PCR (Negative) 01/23/20 Range/Units 09:12 WBC (4.5-11.0) X10^3/uL RBC (4.0-5.2) X10^6/uL Hgb (12.0-16.0) g/dL Hct (36-46) % MCV (80-100) fL MCH (26-34) PG MCHC (30-36) % RDW (11.6-14.8) % Plt Count (150-400) X10^3/uL Neut % (Auto) (50-75) % Lymph % (Auto) (25-40) % [place] % (Auto) (3-14) % Eos % (Auto) (2-4) % Baso % (Auto) (0-2) % Neut # (Auto) (0026-9469) /uL Lymph # (Auto) (4265-1986) /uL [place] # (Auto) (0-900) /uL Eos # (Auto) (0-450) /uL Baso # (Auto) (0-100) /uL Sodium (137-145) mmol/L Potassium (3.4-5.1) mmol/L Chloride (98-107) mmol/L Carbon Dioxide (22-32) mmol/L BUN (7-17) mg/dL Creatinine (0.52-1.04) mg/dL Estimated GFR (>60) mL/min BUN/Creatinine Ratio (6-22) Glucose (70-100) mg/dL Calcium (8.4-10.2) mg/dL Urine Color Urine Appearance Urine pH (4.5-8.0) Ur Specific [place] (1.000-1.035) Urine Protein (Negative) Urine Glucose (UA) (Negative) g/dL Urine Ketones (NEGATIVE) Urine Occult Blood (Negative) Urine Nitrate (Negative) Urine Bilirubin (NEGATIVE) Urine Urobilinogen (0.2) E.U./dL Ur Leukocyte Esterase (NEGATIVE) Urine RBC (0-5/HPF) Urine WBC (0-5/HPF) Ur Squamous Epith Cells (0-5/HPF) Amorphous Sediment Urine Bacteria (None) Ur Culture Indicated? Micro UA Comment COVID-19 PCR Negative (Negative) Imaging Data CT scan - abdomen/pelvis: Radiologist's Impression: Chart Viewer Diagnostics DATE TYPE STATUS REF RANGE/AUTHOR Hx 01/23/20 08:01 Yadiel Bailey 01/18/20 15:35 Viki Witt Jessica 39, F1980 ADM DAVI, 208 -1 162.56cm 83.3kg BMI: 31.5kg/m? Search Chart No Data to Display Total 15 MME/Day Vomiting ONSET Today 10:54 Sujata Qurales 39 F [address] [address] [address] Scan Report Signed Patient: Sujata QuarlesMR#: [id number] : 1980Acct:[id number] Age/Sex: 39 / FDate of Service: 01/23/20 Loc: ED Accession Number: [id number] Procedure: CT abdomen pelvis w con Ordering Provider: Del Moralez D.O. PROCEDURE: CT ABDOMEN PELVIS W CON INDICATIONS: severe abdominal pain TECHNIQUE: After the administration of intravenous contrast, 5 mm thick sections acquired from the diaphragm to the symphysis. 5 mm coronal and sagittal reformats were acquired. For radiation dose reduction, the following was used: automated exposure control, adjustment of mA and/or kV according to patient size. COMPARISON: [facility], , PELVIC COMPLETE, 01/18/2020, 16:06. FINDINGS: Image quality: Excellent. ABDOMEN: Lung bases: Lung bases are clear. Heart size is normal. Solid organs: Liver is normal in size and enhancement. Gallbladder wall is not thickened. Biliary system is non dilated. Pancreas enhances normally. Spleen is normal in size and enhancement. No adrenal nodules. There is an obstructing stone seen within the left proximal ureter, that measures 8 by 12 mm, as on series 2, image 37 and on series 4, image 33. There is associated left-sided hydroureter and hydronephrosis. Several nonobstructing left-sided kidney stones are seen, which measure up to 6 mm. No definite nonobstructing right-sided kidney stones are seen. The kidneys demonstrate normal size. There is delayed enhancement of the left kidney compared to the right. Peritoneum and bowel: Bowel loops demonstrate normal wall thickness and caliber. No free fluid or air. Apparent prior appendectomy change can be seen. Nodes and vessels: No retroperitoneal or mesenteric adenopathy by size criteria. Aorta and inferior vena cava are normal in size. Miscellaneous: A mild periumbilical hernia is seen, containing fat. PELVIS: Genitourinary: Bladder wall thickness is normal. The uterus appears normal for age. No adnexal masses are seen. Miscellaneous: No inguinal hernias or adenopathy. Bones: No suspicious bony lesions. No vertebral body compression fractures. Mild levoconvex scoliotic curvature is noted. There is transitional lumbar anatomy, with a partially lumbarized S1 on the left side. IMPRESSION: 1.2 cm obstructing stone seen within the left proximal ureter, with associated left-sided hydroureter and hydronephrosis. There is delayed enhancement of the left kidney, suggestive kidney dysfunction. Nonobstructing left-sided kidney stones are seen. Incidental note is made of: Fat containing periumbilical hernia Levoconvex scoliotic curvature Apparent prior appendectomy Partially lumbarized S1. Note: Case discussed by telephone with Dr. Moralez at 7:51 a.m. [place] time on January 23, 2020. Dictated by: Yadiel Bailey M.D. on 01/23/2020 at 7:46 Approved by: Yadiel Bailey M.D. on 01/23/2020 at 7:52 Discharge Plan Departure Patient Disposition: Admitted as Observation Clinical Impression: Acute unilateral obstructive uropathy, Obstructive uropathy Discharge Date/Time: 01/23/20 09:55 Admit Date/Time: 01/23/20 10:30 Admit Provider: Rosalio Valverde
[2020-01-23 07:26] LABS: Add Manual Diff / Slide Review NO; Basophils Absolute Auto 0 /uL (0-100); Basophils Percent Auto 0.3 % (0-2); Eosinophils Absolute Auto 100 /uL (0-450); Eosinophils Percent Auto 0.6 % (2-4); Hematocrit 33.9 % (36-46); Hemoglobin 11.6 g/dL (12.0-16.0); Lymphocytes Absolute Auto 1200 /uL (1100-4500); Lymphocytes Percent Auto 8.9 % (25-40); Mean Corpuscular HGB Conc 34.4 % (30-36); Mean Corpuscular Hemoglobin 29.2 PG (26-34); Mean Corpuscular Volume 84.9 fL (80-100); Monocytes Absolute Auto 1100 /uL (0-900); Monocytes Percent Auto 8.2 % (3-14); Neutrophils Absolute Auto 11400 /uL (1500-7000); Platelet Count 325 X10^3/uL (150-400); Red Blood Cell Count 3.99 X10^6/uL (4.0-5.2); Red Cell Distribution Width 13.1 % (11.6-14.8); White Blood Cell Count 13.9 X10^3/uL (4.5-11.0)
[2020-01-23 07:50] LABS: BUN Creatinine Ratio 13.2 (6-22); Blood Urea Nitrogen 15 mg/dL (7-17); Calcium 9.6 mg/dL (8.4-10.2); Carbon Dioxide 21 mmol/L (22-32); Chloride 99 mmol/L (98-107); Estimated Glomerular Filt Rate 53.6 mL/min (>60); Glucose 144 mg/dL (70-100); HEMOLYSIS < 15 (0-50); Potassium 3.7 mmol/L (3.4-5.1); Sodium 135 mmol/L (137-145)
--- NOTE | 2020-01-23 08:01 | DI.CT.S_ITS ---
PROCEDURE: CT ABDOMEN PELVIS W CON INDICATIONS: severe abdominal pain TECHNIQUE: After the administration of intravenous contrast, 5 mm thick sections acquired from the diaphragm to the symphysis. 5 mm coronal and sagittal reformats were acquired. For radiation dose reduction, the following was used: automated exposure control, adjustment of mA and/or kV according to patient size. COMPARISON: [facility], , [place] PELVIC COMPLETE, 01/18/2020, 16:06. FINDINGS: Image quality: Excellent. ABDOMEN: Lung bases: Lung bases are clear. Heart size is normal. Solid organs: Liver is normal in size and enhancement. Gallbladder wall is not thickened. Biliary system is non dilated. Pancreas enhances normally. Spleen is normal in size and enhancement. No adrenal nodules. There is an obstructing stone seen within the left proximal ureter, that measures 8 by 12 mm, as on series 2, image 37 and on series 4, image 33. There is associated left-sided hydroureter and hydronephrosis. Several nonobstructing left-sided kidney stones are seen, which measure up to 6 mm. No definite nonobstructing right-sided kidney stones are seen. The kidneys demonstrate normal size. There is delayed enhancement of the left kidney compared to the right. Peritoneum and bowel: Bowel loops demonstrate normal wall thickness and caliber. No free fluid or air. Apparent prior appendectomy change can be seen. Nodes and vessels: No retroperitoneal or mesenteric adenopathy by size criteria. Aorta and inferior vena cava are normal in size. Miscellaneous: A mild periumbilical hernia is seen, containing fat. PELVIS: Genitourinary: Bladder wall thickness is normal. The uterus appears normal for age. No adnexal masses are seen. Miscellaneous: No inguinal hernias or adenopathy. Bones: No suspicious bony lesions. No vertebral body compression fractures. Mild levoconvex scoliotic curvature is noted. There is transitional lumbar anatomy, with a partially lumbarized S1 on the left side. IMPRESSION: 1.2 cm obstructing stone seen within the left proximal ureter, with associated left-sided hydroureter and hydronephrosis. There is delayed enhancement of the left kidney, suggestive kidney dysfunction. Nonobstructing left-sided kidney stones are seen. Incidental note is made of: Fat containing periumbilical hernia Levoconvex scoliotic curvature Apparent prior appendectomy Partially lumbarized S1. Note: Case discussed by telephone with Dr. Moralez at 7:51 a.m. [place] time on January 23, 2020. Dictated by: Yadiel Bailey M.D. on 01/23/2020 at 7:46 Approved by: Yadiel Bailey M.D. on 01/23/2020 at 7:52
[2020-01-23 08:29] LABS: Appearance Urine UA CLEAR; Bilirubin Urine UA NEGATIVE (NEGATIVE); Color Urine UA YELLOW; Glucose Urine UA NEGATIVE (Negative); Ketones Urine UA NEGATIVE (NEGATIVE); Leukocyte Esterase Urine UA NEGATIVE (NEGATIVE); Nitrite Urine UA NEGATIVE (Negative); Occult Blood Urine UA 3+ (Negative); Protein Urine UA NEGATIVE (Negative)
--- NOTE | 2020-01-23 08:37 | PC.NURSE ---
Patient reports known kidney stone for three weeks. Pain ramped up saturday. no relief with hydrocodone at home, Seen here saturday had pelvic exam states i feel like it pissed everything off Patient hyperventilating, reports feeling weird redirected patient to slow down breathing.
[2020-01-23] MEDS: KETOROLAC 60 MG/2 ML VIAL 15 MG IV (08:38)
[2020-01-23] MEDS: SODIUM CHLORIDE 0.9% 1,000 ML 1000 ML IV (08:39)
[2020-01-23] MEDS: ONDANSETRON 4 MG/2 ML INJ IV (08:45)
--- NOTE | 2020-01-23 08:48 | PC.NURSE ---
patient reports feeling 6-10 chest pressure, states it feels like a bubble in there. States she is not sure if it's related to acid reflux from vomiting, RT called for EKG, Provider notified.
[2020-01-23 09:03] LABS: Amorphous Sediment Urine 1+; Bacteria Urine Moderate (10-30); RBC Urine 1-5/HPF (0-5/HPF); Squamous Epithelial Cell Urine 5-10 /HPF (0-5/HPF); WBC Urine 0-1/HPF (0-5/HPF)
[2020-01-23 09:05] LABS: Culture Indicated Urine Cult Not Indicated
[2020-01-23 10:14] LABS: COVID19 -Nasal RAPID Negative (Negative)
--- NOTE | 2020-01-23 11:08 | PC.NURSE ---
Patient oriented to room and call light. Up to the bathroom to void, steady on feet, urine strained and nothing noted in strainer. Denies pain at this time, states the toradol she received worked well. Keep NPO at this time. VSS. Continue to monitor.
[2020-01-23] MEDS: CEFTRIAXONE 1 GM/50 ML FROZ.PIGGY IV (11:31)
[2020-01-23] MEDS: SODIUM CHLORIDE 0.9% FLUSH 10 ML IV (11:36)
--- NOTE | 2020-01-23 14:04 | P.HP_ITS ---
History of Present Illness History of Present Illness Date Patient Seen: 01/23/20 Time Patient Seen: 14:04 Date of Onset of Symptoms: 01/18/20 Chief complaint: kidney stone won't pass Narrative: Sujata is a 39-year-old white female who presented to the [facility] ED very early in the morning this today with complaint of intractable left-sided flank and abdominal pain. She reports a long history of recurrent stone disease. Her 1st stone was at age 18. She states that she has passed at least 4 stones in her adult life. She has never required intervention and she has never had a metabolic stone risk evaluation. She presented to [facility] ED on 01/18/2020, with complaint of left lower quadrant abdominal pain. She had had a Mirena IUD removed about 3 weeks ago due to malposition in the uterine myometrium. A pelvic ultrasound was obtained at that visit and demonstrated no evidence of hydronephrosis. No mention of any scanning of the kidneys. There was a small amount of clot within the uterine fundus. Thereafter, she experienced recurring and ultimately intractable left-sided flank and abdominal pain leading to her presentation in the very host/hostess hours this day. CT KUB reveals multiple nonobstructing left renal calculi measuring up to 6 mm. Additionally, there is an obstructing 8 x 12 mm left proximal ureteral calculus with associated moderately severe hydronephrosis. There are no calculi in the right kidney. Creatinine on presentation was mildly elevated versus baseline. Urinalysis demonstrated 3+ blood, moderate bacteria, and an abundance of epithelial cells. Patient History Medical History Left renal stone (Acute) Left ureteral stone (Acute) Surgical History H/O Spinal surgery (Acute) History of appendectomy (Acute) History of (Acute) Family & Social History Safety & Behavioral: Feels Safe in Current Yes Environment Been Physically Hurt or No Threatened By a Person Tobacco & Substance use: Smoking Status Never smoker alcohol intake frequency a few times a month Substance Use Type does not use Meds Home Medications and Allergies Home Medications Medication Instructions Recorded Confirmed Type hydrocodone-acetaminophen [[place]] 1 tab PO Q8H PRN #7 tab 01/18/20 01/23/20 Rx ondansetron 4 mg PO BID-TID PRN #7 tab 01/18/20 Rx bupropion HCl 300 mg PO DAILY 01/23/20 01/23/20 History Allergies Allergy/AdvReac Type Severity Reaction Status Date / Time hydromorphone [From Dilaudid] AdvReac Vomiting Verified 01/23/20 07:11 Review of Systems Review of Systems ROS: Yes All systems reviewed with the patient and are negative except as otherwise documented Exam Vital Signs (past 8 hours): - 01/23/20 06:57 01/23/20 07:00 01/23/20 07:09 Temperature 98.4 F Pulse Rate 117 H 119 H 116 H Respiratory Rate 22 Blood Pressure 138/81 138/81 Pulse Oximetry 99 100 98 01/23/20 07:30 01/23/20 08:00 01/23/20 08:35 Temperature Pulse Rate 102 H 113 H 100 H Respiratory Rate 34 H 26 H Blood Pressure Pulse Oximetry 100 100 01/23/20 09:00 01/23/20 09:30 01/23/20 10:00 Temperature Pulse Rate 101 H 105 H 94 H Respiratory Rate 23 24 15 Blood Pressure Pulse Oximetry 100 94 97 01/23/20 10:30 Temperature 97.7 F Pulse Rate 104 H Respiratory Rate 16 Blood Pressure 116/70 Pulse Oximetry 98 Oxygen Delivery Method Room Air Narrative Exam Narrative: She is a well-developed, moderately over nourished white female in mild distress. She is lying in bed. Head/neck-atraumatic and normocephalic. No JVD or adenopathy. Chest-clear, equal and unlabored expansion bilaterally. Heart-regular rate and rhythm. No clicks, rubs, or murmurs appreciated. Abdomen-protuberant and soft. Bowel sounds are normal active. Well-healed appendectomy and incisions. She is moderately tender on deep palpat ion in the left upper quadrant. Objective Labs Result Diagrams: 01/23/20 07:20 01/23/20 07:20 Labs: Laboratory Results - last 24 hr 01/23/20 01/23/20 01/23/20 07:20 07:20 08:21 WBC 13.9 H RBC 3.99 L Hgb 11.6 L Hct 33.9 L MCV 84.9 MCH 29.2 MCHC 34.4 RDW 13.1 Plt Count 325 Neut % (Auto) 82.0 H Lymph % (Auto) 8.9 L [place] % (Auto) 8.2 Eos % (Auto) 0.6 L Baso % (Auto) 0.3 Neut # (Auto) 88220 H Lymph # (Auto) 1200 [place] # (Auto) 1100 H Eos # (Auto) 100 Baso # (Auto) 0 Sodium 135 L Potassium 3.7 Chloride 99 Carbon Dioxide 21 L BUN 15 Creatinine 1.14 H Estimated GFR 53.6 L BUN/Creatinine Ratio 13.2 Glucose 144 H Calcium 9.6 Urine Color Yellow Urine Appearance Clear Urine pH 6.0 Ur Specific [place] 1.010 Urine Protein Negative Urine Glucose (UA) Negative Urine Ketones Negative Urine Occult Blood 3+ H Urine Nitrate Negative Urine Bilirubin Negative Urine Urobilinogen 1.0 Ur Leukocyte Esterase Negative Urine RBC 1-5/hpf Urine WBC 0-1/hpf Ur Squamous Epith Cells 5-10 /hpf H Amorphous Sediment 1+ Urine Bacteria Moderate (10-30) H Ur Culture Indicated? Cult not indicated Micro UA Comment Not Reportable COVID-19 PCR 01/23/20 09:12 WBC RBC Hgb Hct MCV MCH MCHC RDW Plt Count Neut % (Auto) Lymph % (Auto) [place] % (Auto) Eos % (Auto) Baso % (Auto) Neut # (Auto) Lymph # (Auto) [place] # (Auto) Eos # (Auto) Baso # (Auto) Sodium Potassium Chloride Carbon Dioxide BUN Creatinine Estimated GFR BUN/Creatinine Ratio Glucose Calcium Urine Color Urine Appearance Urine pH Ur Specific [place] Urine Protein Urine Glucose (UA) Urine Ketones Urine Occult Blood Urine Nitrate Urine Bilirubin Urine Urobilinogen Ur Leukocyte Esterase Urine RBC Urine WBC Ur Squamous Epith Cells Amorphous Sediment Urine Bacteria Ur Culture Indicated? Micro UA Comment COVID-19 PCR Negative Assessment & Plan Assessment and plan (1) Left ureteral calculus: Status: Acute (2) Left renal stone: Status: Acute (3) History of nephrolithiasis: Status: Acute (4) Renal colic on left side: Status: Acute Assessment & Plan narrative: Assessment: 1. Obstructing 8 x 12 mm left proximal ureteral calculus. 2. Intractable left renal colic. 3. Multiple nonobstructing left renal calculi. 4. History of multiple recurrent nephrolithiasis. Plan: 1. Schedule CYSTOSCOPY/PLACEMENT LEFT URETERAL STENT. Reviewed findings and discussed impression and options. Explained the rationale and indications for endoscopic placement of a left ureteral stent for internal diversion and relief of intractable colic. Explain further the need for definitive therapy of the stone via ureteroscopic laser lithotripsy versus ESWL, further discussion and final plan following today's plan. Explain the common side effects, possible complications, perioperative limitations/restrictions, and reasonable expectations of outcomes and recovery following cystoscopy and placement of left ureteral stent. She had no further clarifying questions or concerns and indicates a desire to proceed as discussed.
[2020-01-23] MEDS: MORPHINE 2 MG/ML INJ IV (14:59)
[2020-01-23] MEDS: SCOPOLAMINE 1 PATCH TOP (14:59)
[2020-01-23] MEDS: LACTATED RINGERS 1,000 ML 42 ML IV (14:59)
[2020-01-23] MEDS: CEFAZOLIN VIAL 3 GM in SODIUM CHLORIDE 0.9% 100 ML 200 ML IV (19:23)
--- NOTE | 2020-01-23 19:46 | SUR.OPER ---
Lithotomy on padded OR bed, head on pillow, arms secured on padded arm boards at <90 degrees abduction. Legs secured in padded yellow fins stirrups.
[2020-01-23] MEDS: BELLADONNA/OPIUM SUPPOSITORIES 1 EACH PR (19:50)
--- NOTE | 2020-01-23 19:55 | PM.OP.1 ---
Operative Date/Time/Diagnoses Date of procedure: 01/23/20 Time of procedure: 19:56 Pre-op diagnosis: 1. Obstructing 8 x 12 mm left proximal ureteral calculus. 2. Intractable left renal colic. 3. Multiple nonobstructing left renal calculi. Post-op diagnosis: same Procedure & Clinicians Procedure: 1. Cystoscopy and left ureteral stone manipulation without removal. 2. Cystoscopy and placement left ureteral stent (8 Bruneian by 22-32 cm). Same procedure as scheduled: Yes Indications: 1. Obstructing 8 x 12 mm left proximal ureteral calculus. 2. Intractable left renal colic. Surgeon: Rosalio Valverde Click Yes if Unassisted: Yes Anesthesia Type: General Operative Notes Findings: 1. Urethral-normal caliber. 2. Bladder-moderate amount of amorphous debris within the bladder lumen. Right orifice appeared normal in position and was somewhat patulous. The left ureteral orifice appeared to be a bit laterally positioned. It was patulous. 3. Following positioning of the left ureteral stent, cloudy efflux in particular debris emanated from and around the left ureteral stent. 4. No evidence of radiopaque calculus within the proximal ureter or within the expected outline of the left kidney. Closure Type: not applicable Specimen(s): none sent Applied: other (Eight Bruneian by 22-32 cm multi-length stent.) Estimated Blood Loss (mL): 0 Blood products transfused: none Tourniquet time (min): 0 Procedure in detail: The patient was positioned supine and administered general anesthesia. She was then repositioned in semi lithotomy in the lower abdomen genitalia and groin were prepped and draped in sterile fashion. The 22 Bruneian panendoscope was passed lower urinary tract with the findings as described above. A 0.35 guidewire was then selected and advanced into the working port of the scope and then into the left ureteral orifice and advanced proximally under direct and fluoroscopic guidance. Next, an 8 Bruneian by 22-32 cm multi-length stent was selected. This too was advanced over the guidewire under direct and fluoroscopic guidance. NO RETRIEVAL LINE WAS LEFT ATTACHED. The bladder was then drained completely and all instrumentation was removed. She was then awakened, transferred to [facility], and transferred recovery in stable condition. Complications: none Post-operative Condition: stable Disposition: PACU Plan for aftercare: Discharge home
--- NOTE | 2020-01-23 20:24 | SUR.PHASEI ---
Patient declined tylenol
--- NOTE | 2020-01-23 20:27 | SUR.PHASEI ---
report called to Lakia
--- NOTE | 2020-01-23 20:42 | SUR.PHASEI ---
Patient transferred to the floor. Report given to Lakia. VS stable. IV saline locked.
--- NOTE | 2020-01-23 22:15 | PC.NURSE ---
Evening Shift Note- Patient discharged home. Discharge instructions and educations reviewed with patient and signed. IV line removed and bandaid. Patient dressed self anc packed up all personal belongings. unable to get patients Wellbutrin from pharmacy at this time. Patient or will come in tomorrow morning to puick up personal RX from pharm.. Patient left via wheelchaiur to private car at 2215.
== END 2020-01-23 22:15 | disposition home or self-care (01) ==
LOC: ED 09:35 → AC 10:33
PROVIDERS: Admitting Provider Specialist; Emergency Provider Emergency Medicine; Referring Provider Emergency Medicine; Visit Provider Specialist
PROC: (CPT 52330; principal; 2020-01-23 14:05)
DX: N20.1 Calculus of ureter (principal); N20.0 Calculus of kidney; Z87.442 Personal history of urinary calculi; Z11.59 Encounter for screening for other viral diseases
CPT/HCPCS: 52330; 52332; 36415; 74018; 74177; 76000; 80048; 81001; 85025; 87077; 87086; 87635; 93005; 96361; 96365; 96375; 99219; 99284; G0378; J0690; J1100; J1885; J2250; J2270; J2405; J2704; J3010; Q9967

== ENCOUNTER 2020-02-01 20:28 | Emergency (ER) | payer OTHER, SELFPAY ==
[2020-01-23 10:30] VITALS: BMI 31.1
[2020-02-01 20:31] VITALS: BP 136/71; PULSE 89; RESP 22; TEMP 36.7; O2SAT 100
--- NOTE | 2020-02-01 20:37 | ED.FEMALEGU ---
HPI - Female Genitourinary General Chief complaint: Urogenital-Female Stated complaint: KIDNEY PAIN Time Seen by Provider: 02/01/20 20:30 Source: patient and family Mode of arrival: Ambulatory Limitations: no limitations History of Present Illness HPI Narrative: 39-year-old female nonsmoker with a known 1.2 cm left-sided kidney stone and of ureteral stent presents with family in the chief complaint of severe lower pelvic pain with episodes of increasing severity over the course of the day. She has had nausea but denies any vomiting. She denies any fever, chills. She has had a runny nose, sore throat or cough. She is scheduled to a coronavirus swab in the morning and lithotripsy with Urology on Saturday. She denies any vaginal bleeding or discharge MD Complaint: dysuria Onset (ago): hour(s) Location: suprapubic Severity: severe Quality: Cramping Duration: intermittent Relieving factors: none Exacerbating factors: none Urinary symptoms: Difficulty Urinating Patient : No Related Data Home Medications Medication Instructions Recorded Confirmed bupropion HCl 300 mg PO DAILY 01/23/20 02/01/20 Previous Rx's Medication Instructions Recorded ondansetron 4 mg PO BID-TID PRN #7 tab 01/18/20 oxycodone 5 mg PO Q4H PRN #14 tab 01/23/20 oxycodone 5 mg PO Q4-6H PRN #10 tab 02/01/20 sulfamethoxazole-trimethoprim 1 tab PO BID 10 Days #20 tab 02/01/20 [Bactrim DS] Allergies Allergy/AdvReac Type Severity Reaction Status Date / Time hydromorphone [From Dilaudid] AdvReac Vomiting Verified 02/01/20 20:38 Review of Systems Constitutional Constitutional: Denies chills, Denies fatigue, Denies fever(s), Denies frequent falls, Denies lethargy and Denies weakness Eyes Eyes: Denies change in vision, Denies eye discharge, Denies irritation and Denies loss of vision ENT Ears, Nose, Mouth, and Throat: Denies change in voice, Denies dizziness, Denies neck pain, Denies sore throat and Denies throat swelling Cardiovascular Cardiovascular: Denies chest pain, Denies irregular heart rhythm, Denies lightheadedness, Denies palpitations, Denies dyspnea, Denies dyspnea on exertion and Denies orthopnea Respiratory Respiratory: Denies cough, Denies dyspnea, Denies dyspnea on exertion and Denies wheezing Gastrointestinal Gastrointestinal: Denies abdominal pain, Denies change in bowel habits, Denies diarrhea, Denies nausea and Denies vomiting Genitourinary Genitourinary: Reports dysuria Genitourinary: Reports dysuria and Reports pelvic pain Musculoskeletal Musculoskeletal: Denies neck pain and Denies numbness Integumentary/Breasts Skin/Breast: Denies pruritus, Denies erythema, Denies rash and Denies wounds Neurologic Neurologic: Denies behavioral changes, Denies confusion, Denies dizziness, Denies frequent falls, Denies loss of vision, Denies numbness and Denies weakness Psychiatric Psychiatric: Denies anxiety, Denies behavioral changes, Denies confusion, Denies depression, Denies homicidal ideation and Denies suicidal ideation Endocrine Endocrine: Denies fatigue, Denies flushing and Denies palpitations Hematologic/Lymphatic Hematologic/Lymphatic: Denies easy bruising Allergic/Immunologic Allergic/Immunologic: Denies urticaria, Denies throat swelling and Denies wheezing Patient History Medical History History of nephrolithiasis (Acute) Left renal stone (Acute) Left renal stone (Acute) Left ureteral calculus (Acute) Left ureteral stone (Acute) Renal colic on left side (Acute) Surgical History H/O Spinal surgery (Acute) History of appendectomy (Acute) History of (Acute) Hx of cystoscopy (Acute 01/23/20) alcohol intake frequency: a few times a month Substance Use Type: does not use Exam Narrative Exam Narrative: GENERAL: [39] year old patient appears stated age. Well-nourished, well-developed patient, in mild distress. HEAD: Atraumatic. Normocephalic. EYES: Pupils equal round and reactive. Extraocular motions intact. No scleral icterus. No injection or drainage. ENT: Nose without bleeding, purulent drainage. Throat without erythema, tonsillar hypertrophy or exudate. Airway patent. NECK: Trachea midline. Non tender CARDIOVASCULAR: Regular rate and rhythm without murmurs, gallops, or rubs. RESPIRATORY: Clear to auscultation. Breath sounds equal bilaterally. No wheezes, rales, or rhonchi. GASTROINTESTINAL: Abdomen soft, non-tender, nondistended. EXTREMITIES: No edema or joint tenderness. BACK: Nontender without deformity or crepitance. No flank tenderness. NEURO: AOx3. SKIN: No rash or erythema of visible areas Initial Vital Signs Initial Vital Signs: Vital Signs Temperature 98.0 F 02/01/20 20:31 Pulse Rate 89 02/01/20 20:31 Respiratory Rate 22 02/01/20 20:31 Blood Pressure 136/71 02/01/20 20:31 Pulse Oximetry 100 02/01/20 20:31 Course Course Course Narrative: call to Dr. Valverde, after reviewing the case. He recommends treatment of UTI with Rocephin and Rx of Bactrim to allow UTI to calm down prior to procedure on Saturday. Patient given return precautions and questions answered to the apparent satisfaction of patient. Orders Ordered: ED Orders 02/01/20 20:49 Urine Culture Stat Urine Microscopic Stat 02/01/20 20:50 Basic Metabolic Panel Stat Complete Blood Count AUTO DIFF Stat 02/01/20 21:10 XR KUB Stat Discontinued Medications Ceftriaxone Sodium/Dextrose (Rocephin) 1 gm in 50 mls @ 100 mls/hr IV NOW ONE Stop: 02/01/20 21:32 Last Admin: 02/01/20 21:12 Dose: 100 mls/hr Documented by: RUDOLPH Oxycodone/Acetaminophen (Endocet 5/325 Prepack) 1 bottle MISC SEEINSTR ONE Stop: 02/01/20 21:45 Vital Signs Vital signs: Vital Signs - 8 hr 02/01/20 20:31 Temperature 98.0 F Pulse Rate 89 Respiratory Rate 22 Blood Pressure 136/71 Pulse Oximetry 100 MDM - Female Genitourinary Lab Data Result diagrams: 02/01/20 20:50 02/01/20 20:50 Labs: Lab Results 02/01/20 02/01/20 02/01/20 Range/Units 20:49 20:50 20:50 WBC 10.9 (4.5-11.0) X10^3/uL RBC 4.21 (4.0-5.2) X10^6/uL Hgb 12.2 (12.0-16.0) g/dL Hct 36.1 (36-46) % MCV 85.7 (80-100) fL MCH 28.9 (26-34) PG MCHC 33.7 (30-36) % RDW 13.5 (11.6-14.8) % Plt Count 407 H (150-400) X10^3/uL Neut % (Auto) 65.1 (50-75) % Lymph % (Auto) 24.6 L (25-40) % George % (Auto) 8.6 (3-14) % Eos % (Auto) 1.2 L (2-4) % Baso % (Auto) 0.5 (0-2) % Neut # (Auto) 7100 H (2772-5027) /uL Lymph # (Auto) 2700 (7689-7521) /uL George # (Auto) 900 (0-900) /uL Eos # (Auto) 100 (0-450) /uL Baso # (Auto) 0 (0-100) /uL Sodium 139 (137-145) mmol/L Potassium 3.4 (3.4-5.1) mmol/L Chloride 102 (98-107) mmol/L Carbon Dioxide 30 (22-32) mmol/L BUN 18 H (7-17) mg/dL Creatinine 0.90 (0.52-1.04) mg/dL Estimated GFR > 60.0 (>60) mL/min BUN/Creatinine Ratio 20.0 (6-22) Glucose 92 (70-100) mg/dL Calcium 9.7 (8.4-10.2) mg/dL Urine RBC 10-30/hpf H (0-5/HPF) Urine WBC 10-30/hpf H (0-5/HPF) Ur Squamous Epith Cells 1-5 /hpf (0-5/HPF) Ur Transition Epith Cell 1-5/hpf (0-5/HPF) Urine Bacteria Occasional (0-1) D (None) Ur Culture Indicated? Specimen cultured Point of Care Testing Test Results Negative Urine Dip Bedside Urine Glucose Negative Bedside Urine Bilirubin - Negative Bedside Urine Ketone - Negative Urine Specific [place] 1.020 Bedside Urine Occult Blood +++ Bedside Urine pH 6 Bedside Urine Protein ++ 100 Bedside Urine Urobilinogen - Negative Bedside Urine Nitrite - Negative Bedside Urine Leukocytes + 70 Esterase Imaging Data Abdominal x-ray: Radiologist's Impression: Sujata Qaurles 39 F [address] [address] XRay Report Signed Patient: Sujata Quarles LMR#: [id number] : 1980Acct:[id number] Age/Sex: 39 / FDate of Service: 02/01/20 Loc: ED Accession Number: [id number] Procedure: XR KUB Ordering Provider: Del Moralez D.O. PROCEDURE: XR KUB INDICATIONS: stone location? known 1.2cm left ureter TECHNIQUE: One view of the abdomen acquired. COMPARISON: [facility], CR, XR ABDOMEN 1V, 01/23/2020, 19:55. [facility], CR, XR KUB, 01/23/2020, 14:02. FINDINGS: Surgical changes and devices: Left ureteral stent is present, the proximal pigtail of which appears to be within an infundibulum. Bowel: Bowel gas pattern is normal. Soft tissues: No suspicious abdominal calcifications. Visualized solid organ contours appear normal in size. Bones: No suspicious bony lesions. IMPRESSION: 1. Left ureteral stent. 2. No evidence of urinary tract calcification. Dictated by: Sincere Billingsley M.D. on 02/01/2020 at 21:27 Approved by: Sincere Billingsley M.D. on 02/01/2020 at 21:28 Discharge Plan Departure Patient Disposition: Home Clinical Impression: UTI (urinary tract infection) Qualifiers: Urinary tract infection type: acute cystitis Hematuria presence: without hematuria Qualified Code(s): N30.00 - Acute cystitis without hematuria Instructions: DI for Urinary Tract Infection (UTI) Activity Restrictions/Additional Instructions: *You have been diagnosed with [ acute UTI ] *What to do: *Take medications as directed *Follow up with Dr. Valverde on Saturday as planned. Make sure you still get your COVID swab as planned tomorrow *Return to ER if you should have any new, worsening or concerning symptoms, such as [ worsening, fever > 101F, persistent vomiting, or other bothersome symptoms] Prescriptions: New sulfamethoxazole-trimethoprim [Bactrim DS] 800-160 mg tablet 1 tab PO BID 10 Days Qty: 20 RF: 0 oxycodone 5 mg tablet 5 mg PO Q4-6H PRN (Reason: pain) Qty: 10 RF: 0 No Action ondansetron 4 mg tablet,disintegrating 4 mg PO BID-TID PRN (Reason: nausea and vomiting) Qty: 7 RF: 0 bupropion HCl 300 mg tablet extended release 24 hr 300 mg PO DAILY RF: 0 oxycodone 5 mg tablet 5 mg PO Q4H PRN (Reason: pain) Qty: 14 RF: 0 Referrals: Rosalio Valverde MD [Physician] -
[2020-02-01 21:01] LABS: Add Manual Diff / Slide Review NO; Basophils Absolute Auto 0 /uL (0-100); Basophils Percent Auto 0.5 % (0-2); Eosinophils Absolute Auto 100 /uL (0-450); Eosinophils Percent Auto 1.2 % (2-4); Hematocrit 36.1 % (36-46); Hemoglobin 12.2 g/dL (12.0-16.0); Lymphocytes Absolute Auto 2700 /uL (1100-4500); Lymphocytes Percent Auto 24.6 % (25-40); Mean Corpuscular HGB Conc 33.7 % (30-36); Mean Corpuscular Hemoglobin 28.9 PG (26-34); Mean Corpuscular Volume 85.7 fL (80-100); Monocytes Absolute Auto 900 /uL (0-900); Monocytes Percent Auto 8.6 % (3-14); Neutrophils Absolute Auto 7100 /uL (1500-7000); Neutrophils Percent Auto 65.1 % (50-75); Platelet Count 407 X10^3/uL (150-400); Red Blood Cell Count 4.21 X10^6/uL (4.0-5.2); Red Cell Distribution Width 13.5 % (11.6-14.8); White Blood Cell Count 10.9 X10^3/uL (4.5-11.0)
[2020-02-01 21:07] LABS: Bacteria Urine Occasional (0-1); Culture Indicated Urine Specimen Cultured; RBC Urine 10-30/HPF (0-5/HPF); Squamous Epithelial Cell Urine 1-5 /HPF (0-5/HPF); Transitional Epi Cells Urine 1-5/HPF (0-5/HPF); WBC Urine 10-30/HPF (0-5/HPF)
--- NOTE | 2020-02-01 21:10 | DI.RAD.S_ITS ---
PROCEDURE: XR KUB INDICATIONS: stone location? known 1.2cm left ureter TECHNIQUE: One view of the abdomen acquired. COMPARISON: [facility], CR, XR ABDOMEN 1V, 01/23/2020, 19:55. [facility], CR, XR KUB, 01/23/2020, 14:02. FINDINGS: Surgical changes and devices: Left ureteral stent is present, the proximal pigtail of which appears to be within an infundibulum. Bowel: Bowel gas pattern is normal. Soft tissues: No suspicious abdominal calcifications. Visualized solid organ contours appear normal in size. Bones: No suspicious bony lesions. IMPRESSION: 1. Left ureteral stent. 2. No evidence of urinary tract calcification. Dictated by: Sincere Billingsley M.D. on 02/01/2020 at 21:27 Approved by: Sincere Billingsley M.D. on 02/01/2020 at 21:28
[2020-02-01] MEDS: CEFTRIAXONE 1 GM/50 ML FROZ.PIGGY IV (21:12)
[2020-02-01 21:20] LABS: Blood Urea Nitrogen 18 mg/dL (7-17); Calcium 9.7 mg/dL (8.4-10.2); Carbon Dioxide 30 mmol/L (22-32); Chloride 102 mmol/L (98-107); Estimated Glomerular Filt Rate > 60.0 mL/min (>60); Glucose 92 mg/dL (70-100); HEMOLYSIS < 15 (0-50); Potassium 3.4 mmol/L (3.4-5.1); Sodium 139 mmol/L (137-145)
[2020-02-01] MEDS: OXYCODONE/APAP 5/325 PREPACK 1 BOTTLE MISC (21:56)
[2020-02-01 22:07] VITALS: BP 116/74; PULSE 90; RESP 18; TEMP 36.8; O2SAT 97
== END 2020-02-01 22:08 | disposition home or self-care (01) ==
PROVIDERS: Emergency Provider Emergency Medicine
DX: N30.00 Acute cystitis without hematuria (principal); R11.0 Nausea; R30.0 Dysuria; N20.0 Calculus of kidney
CPT/HCPCS: 36415; 74018; 80048; 81003; 81015; 81025; 85025; 87086; 96365; 99284

== ENCOUNTER → 2020-02-02 13:55 | Outpatient (CLI) | payer OTHER, SELFPAY ==
[2020-01-23 10:30] VITALS: BMI 31.1
[2020-02-03 20:02] LABS: COVID19 Sendout Not Detected (Not Detect)
== END ==
PROVIDERS: Visit Provider Physician Assistant
DX: Z11.59 Encounter for screening for other viral diseases (principal)
CPT/HCPCS: 87635

== ENCOUNTER 2020-02-05 08:08 | Day surgery (SDC) | payer OTHER, SELFPAY ==
[2020-01-23 10:30] VITALS: BMI 31.1
[2020-02-05] VITALS (11 sets, daily range): BP systolic 109–132; BP diastolic 48–80; PULSE 85–111; RESP 14–20; TEMP 36.1–37.3; O2SAT 98–100; BMI 30.9
--- NOTE | 2020-02-05 | DI.RAD.S_ITS ---
PROCEDURE: XR ABDOMEN 1V INDICATIONS: LEFT KIDNEY STONE TECHNIQUE: One view of the abdomen acquired. COMPARISON: [facility], CR, XR KUB, 02/01/2020, 21:02. [facility], CR, XR KUB, 01/23/2020, 14:02. [facility], CT, CT ABDOMEN PELVIS W CON, 01/23/2020, 8:16. [facility], CR, XR ABDOMEN 1V, 01/23/2020, 19:55. FINDINGS: Surgical changes and devices: A catheter with guidewire within has been advanced cephalad on the left through the ureter, and the tip is within the upper collecting system of the left kidney. Bowel: Bowel gas pattern is normal. Soft tissues: No suspicious abdominal calcifications. Visualized solid organ contours appear normal in size. Bones: No suspicious bony lesions. IMPRESSION: Left-sided double pigtail ureteral and collecting system catheter appears to have been withdrawn, replaced by a catheter and internal device potentially related to stone extraction. Dictated by: Troy Gonzalez M.D. on 02/05/2020 at 11:18 Approved by: Troy Gonzalez M.D. on 02/05/2020 at 11:20
[2020-02-05] MEDS: LACTATED RINGERS 1,000 ML 42 ML IV (08:25)
[2020-02-05] MEDS: GENTAMICIN 180 MG in SODIUM CHLORIDE 0.9% 100 ML 104.5 ML IV (08:27)
--- NOTE | 2020-02-05 08:43 | PM.PREOP ---
Pre-operative Note Interval Note History & Physical reviewed/Exam performed by Physician: Yes Changes to H&P: No
[2020-02-05] MEDS: AMPICILLIN/SULBACTAM 3 GM 3 GM in SODIUM CHLORIDE 0.9% 100 ML IV (09:05)
--- NOTE | 2020-02-05 09:08 | SUR.OPER ---
Lithotomy on padded OR bed, head on pillow, arms secured on padded arm boards at <90 degrees abduction. Legs secured in padded yellow fins stirrups.
[2020-02-05] MEDS: IOPAMIDOL 15 ML VIAL INJ (09:23)
[2020-02-05] MEDS: BELLADONNA/OPIUM SUPPOSITORIES 1 EACH PR (09:24)
--- NOTE | 2020-02-05 09:40 | SUR.OPER ---
soltive laser was used 6.04minutes and 7.22KJ
--- NOTE | 2020-02-05 09:48 | PM.OP.1 ---
Operative Date/Time/Diagnoses Date of procedure: 02/05/20 Time of procedure: 09:48 Pre-op diagnosis: 1. Obstructing 12 x 8 mm left proximal ureteral calculus. 2. Retained left ureteral stent. 3. History recurrent UTI. Post-op diagnosis: same Procedure & Clinicians Procedure: 1. Cystoscopy and left ureteroscopic laser lithotripsy. 2. Cystoscopy and removal of left ureteral stent. Same procedure as scheduled: Yes Indications: 1. Obstructing 8 x 12 mm left proximal ureteral calculus. 2. Retained left ureteral stent. 3. History recurrent UTI. Surgeon: Rosalio Valverde Click Yes if Unassisted: Yes Anesthesia Type: General Operative Notes Findings: 1. Urethra-normal 2. Bladder-bullous edema and erythema surrounding the area of the left ureteral orifice. Otherwise bladder urothelium normal throughout. 3. Left ureter-free of calculus or abrasions. The index calculus migrated to intrarenal position at time of initial stent placement. Closure Type: not applicable Specimen(s): none sent Estimated Blood Loss (mL): 0 Blood products transfused: none Tourniquet time (min): 0 Procedure in detail: Patient was positioned supine was administered general anesthesia. She was then repositioned semi lithotomy lower abdomen, genitalia, and perineum were prepped and draped in sterile fashion. Next the 22 Salvadorean panendoscope was passed lower urinary tract with findings as described above. The indwelling the left ureteral stent was engaged with a foreign body grasper and brought to the perineum. A motion 0.35 guidewire was then advanced through the lumen of the stent under fluoroscopic guidance. The stent was backloaded off the wire and discarded. A dual-lumen ureteral access sheath was then advanced over this with motion wire advanced to the left renal pelvis. A retrograde pyelogram was then performed at this time to assure proper positioning. Second 0.35 motion guidewire was then advanced through the 2nd lumen of the ureteral access sheath. Ureteral access sheath was then backloaded off both wires. One wire was attached to the drape with a plastic clamp. The other wire was utilized to advance the flexible ureteral scope over under direct and fluoroscopic guidance. This wire was then removed. Retrograde pyelogram was again performed. The index calculus was located in the superior pole calyceal system. A 200 micron laser fiber was then selected. All operating room personnel and patient were then fitted with laser safety eyewear. Laser lithotripsy was then commenced with excellent result and stone fragmentation. Retrograde pyelogram was then performed again and careful inspection of all the calices was performed systematically. Intraoperative decision was made at that point to not leave an indwelling stent. The flexible ureteral scope was then removed, the safety wire was removed, and that the panendoscope sheath was then put into the bladder and its contents drain. The patient was then repositioned in supine, was awakened, and transferred to [facility] in stable condition. Complications: none Post-operative Condition: stable Disposition: PACU Plan for aftercare: Discharge home
[2020-02-05] MEDS: LORazepam 2 MG/ML INJ 0.5 MG IV ×2 (10:09→10:15)
[2020-02-05] MEDS: ONDANSETRON 4 MG/2 ML INJ IV (10:22)
[2020-02-05] MEDS: buPROPion XL 150 MG TAB 300 MG PO (10:32)
[2020-02-05] MEDS: FUROSEMIDE 20 MG/2 ML VIAL IV (10:49)
--- NOTE | 2020-02-05 12:59 | SUR.PHASEII ---
1200 Patient ambulated to bathroom twice prior to discharge. Stone sent for analysis. Patient tolerated PO beverage and snack prior to discharge. Instructed patient to call office for follow-up appointment.
--- NOTE | 2020-02-05 14:58 | SUR.PHASEI ---
Pt arrived from OR, she states she is very thirsty, provided pt with water and apple juice. She starts shaking and breathing rapidly. pt has history of anxiety, spoke with Brigette and provided pt with ativan 2x 0.5mg. She was having a panic attack and admitted it. After ativan she was much more calm and able to sleep. Pt denied pain the entire time in phase I. able to urinate in BSC, urine was strained and end of strainer sent to lab for stone anaylsis. report given to Shaila MOONEY.
[2020-02-22 11:55] LABS: Size <1; Stone Analysis Source NOT PROVIDED
== END 2020-02-05 12:00 | disposition home or self-care (01) ==
PROVIDERS: Referring Provider Specialist; Visit Provider Specialist
PROC: (CPT 52356; principal; 2020-02-05 07:45)
DX: N20.1 Calculus of ureter (principal); Z87.440 Personal history of urinary (tract) infections
CPT/HCPCS: 52356; 74018; 76000; 82365; 87086; J0295; J1100; J1940; J2060; J2250; J2405; J2704; J3010